=== PATIENT | female | born 1955 | race Caucasian/White ===

== ENCOUNTER 2018-06-20 12:15 | Emergency (ER) | payer BC ==
[~2018-06-20] VITALS: Ht 167.6 cm; Wt 65.9 kg
[~2018-06-20 12:15] MED LIST: ACTOS 45MG45 MG/TAB PO; ASPIR-LOW81 MG PO; FORTAMET1000 MG PO; GLUCOTROL10 MG PO; LEVAQUIN 5500 MG/TA1 PO; LISINOPRIL20 MG PO; OXYCODONE HCL5 MG PO; PREDNISONE20 MG PO; PROAIR HFA0.09 MG/AC IH; RIBAVIRIN PO; ZITHROMAX Z PA250 MG PO; pegasys
[2018-06-20 12:16] VITALS: BP 192/99; TEMP 97.9
[2018-06-20 13:53] VITALS: PULSE 89
== END 2018-06-20 13:54 | disposition home or self-care (01) ==
LOC: COL.ER 12:15
DX: R07.81 Pleurodynia (principal); M25.512 Pain in left shoulder; I10 Essential (primary) hypertension; E11.9 Type 2 diabetes mellitus without complications; F17.210 Nicotine dependence, cigarettes, uncomplicated; W19.XXXA Unspecified fall, initial encounter
CPT/HCPCS: J1885

== ENCOUNTER 2018-12-08 07:53 | Observation (INO) | payer BC ==
[~2018-12-08] VITALS: Ht 167.6 cm; Wt 63.3 kg
[2018-12-08 08:54] LABS: BASO # 0.1 (0.0-0.2); BASO % 0.6 % (0.0-2.0); EOS # 0.1 (0.0-0.7); EOS % 1.3 % (0-4.0); GRAN # 5.9 (1.4-6.5); GRAN % 71.9 % (42.2-75.2); HEMATOCRIT 42.6 % (37.0-47.0); HEMOGLOBIN 14.8 g/dl (12.5-16.0); LYMPH # 1.7 (1.2-3.4); MEAN CELL VOLUME 88 fl (80.0-100.0); MEAN CORPUSCULAR HEMOGLOBIN 30 pg (27.0-31.0); MEAN CORPUSCULAR HGB CONC 35 g/dl (33.0-37.0); MEAN PLATELET VOLUME 11.3 fl (7.4-10.4); MONO # 0.4 (0.1-0.6); MONO % 4.8 % (1.7-9.3); PLATELET COUNT 202 K/mm3 (130-400); RED BLOOD COUNT 4.87 M/mm3 (4.10-5.30); REDCELL DISTRIBUTION WIDTH-CV 11.6 % (11.5-14.5)
[2018-12-08 08:56] LABS: PROTHROMBIN TIME 11.6 SECONDS (9.7-12.8)
[2018-12-08 08:59] LABS: PARTIAL THROMBOPLASTIN TIME 27.8 SECONDS (26.0-37.0)
[2018-12-08 09:04] LABS: ALANINE AMINOTRANSFERASE 23 U/L (9-52); ALBUMIN 3.8 gm/dL (3.5-5.0); ALKALINE PHOSPHATASE 105 U/L (50-136); ANION GAP 9 mmol/L (7-16); AST,SGOT 23 U/L (15-37); BILIRUBIN,TOTAL 0.4 mg/dL (0.0-1.0); BLOOD UREA NITROGEN 17 mg/dL (7-17); CALCIUM 9.2 mg/dL (8.4-10.2); CARBON DIOXIDE 24 mmol/L (22-30); CHLORIDE 104 mmol/L (98-107); CREATININE, serum 0.59 mg/dL (0.52-1.25); GLUCOSE 381 mg/dL (74-106); SODIUM 137 mmol/L (137-145); TOTAL PROTEIN 6.8 gm/dL (6.4-8.2)
[2018-12-08 09:23] LABS: TROPONIN-I < 0.012 ng/mL (0.000-0.034)
[2018-12-08 09:44] LABS: COLLECTION METHOD CLEAN CATCH
[2018-12-08 10:08] LABS: MUCOUS Present /lpf; PH 5 (5-8); URINE APPEARANCE Clear; URINE BACTERIA None Seen /hpf; URINE BILIRUBIN Negative (NEGATIVE); URINE BLOOD Negative (NEGATIVE); URINE COLOR Yellow; URINE GLUCOSE 3+ (NEGATIVE); URINE KETONE Negative (NEGATIVE); URINE LEUKOCYTE ESTERASE Negative (NEGATIVE); URINE NITRATE Negative (NEGATIVE); URINE PROTEIN(semi-quant) Negative (NEGATIVE); URINE UROBILINOGEN Negative (NEGATIVE)
--- NOTE | 2018-12-08 14:12 | NUR ---
Pt arrived to room 319 at this time. She is A/O x3. Her breathing is even and unlabored on RA. Pt denies any pain at this time. Reports that she takes no home medications. POC discussed with patient who verbalizes understanding. She denies any further needs. Call light within reach.
[2018-12-08 15:27] VITALS: BP 165/83; PULSE 73; TEMP 99
[2018-12-08 16:30] LABS: TRICYCLIC ANTIDEPRESS URINE NEGATIVE
--- NOTE | 2018-12-08 18:44 | NUR ---
Pt rested well after arriving to the floor. BS high, insulin dosed per MAR. Discussed with patient the use of insulin and blood sugar checks. Pt reportedly asked day shift nurse "what would happen if I leave before they let me?". Importance of remaining in the hospital discussed with patient. Verbalized understanding. Call light within reach.
[2018-12-08 19:16] VITALS: BP 173/84; PULSE 88; TEMP 98.1
--- NOTE | 2018-12-08 19:44 | NUR ---
Resting in bed. Assessment complete. Alert and orientated. Lungs clear. Heart sounds normal. Pulses strong throughout. Denies pain. Denies needs at this time. Call light in reach.
[2018-12-08 19:48] VITALS: BP 151/73
--- NOTE | 2018-12-08 23:40 | NUR ---
Resting in bed asleep. Call light in reach.
[2018-12-09 01:28] VITALS: BP 161/85; PULSE 88; TEMP 98.7
--- NOTE | 2018-12-09 02:56 | NUR ---
Resting in bed asleep. Call light in reach.
[2018-12-09 05:16] VITALS: BP 169/73; PULSE 73
--- NOTE | 2018-12-09 06:37 | NUR ---
Uneventful night. Resting in bed this AM. Call light in reach.
[2018-12-09 06:40] LABS: BASO # 0.1 (0.0-0.2); BASO % 0.7 % (0.0-2.0); EOS # 0.2 (0.0-0.7); EOS % 2.9 % (0-4.0); GRAN # 4.3 (1.4-6.5); GRAN % 55.8 % (42.2-75.2); HEMATOCRIT 39.9 % (37.0-47.0); HEMOGLOBIN 13.7 g/dl (12.5-16.0); LYMPH # 2.7 (1.2-3.4); LYMPH % 34.7 % (20.0-51.0); MEAN CELL VOLUME 90 fl (80.0-100.0); MEAN CORPUSCULAR HEMOGLOBIN 31 pg (27.0-31.0); MEAN CORPUSCULAR HGB CONC 34 g/dl (33.0-37.0); MEAN PLATELET VOLUME 10.5 fl (7.4-10.4); MONO # 0.4 (0.1-0.6); MONO % 5.6 % (1.7-9.3); PLATELET COUNT 226 K/mm3 (130-400); RED BLOOD COUNT 4.46 M/mm3 (4.10-5.30); REDCELL DISTRIBUTION WIDTH-CV 11.9 % (11.5-14.5)
[2018-12-09 06:53] LABS: CALCIUM 8.7 mg/dL (8.4-10.2); CHOLESTEROL RISK RATIO 3.1; CREATININE, serum 0.66 mg/dL (0.52-1.25); POTASSIUM 3.9 mmol/L (3.4-5.0)
[2018-12-09 07:32] VITALS: BP 156/101; PULSE 81; TEMP 98.2
--- NOTE | 2018-12-09 07:32 | NUR ---
Resting in the bed quitely. No pain or needs reported. The call light is in place.
[2018-12-09] MEDS ORDERED: ZESTRIL 20MG TA20 MG PO (09:42)
[2018-12-09] MEDS ORDERED: GLUCOSE TEST ST1 DEV MC (09:56)
[2018-12-09] MEDS ORDERED: FREESTYLE PREC1 EAC5 MC (09:59)
[2018-12-09] MEDS ORDERED: LEVEMIR FLEX100 U/ML SQ (10:01)
[2018-12-09] MEDS ORDERED: THE MEDICINE SH1 DE3 MC (10:02)
[2018-12-09] MEDS ORDERED: LANCETS MC (10:02)
[2018-12-09] MEDS ORDERED: GLUCOPHAGE500 MG/TAB PO (10:03)
--- NOTE | 2018-12-09 10:47 | NUR ---
SW and SW student attended clinical rounding and met with patient to discuss discharge planning. Patient lives in [facility] alone and independently. Patients PCP is Dr Mary Ellen Laguna and she obtains her medications from [facility] in [facility]. Patient is going to dc home today and doesnt have any concerns.
--- NOTE | 2018-12-09 10:58 | NUR ---
The patient demonstarted taking her own blood sugar and following giving her own insulin. Plan to discharge home today.
--- NOTE | 2018-12-09 11:02 | NUR ---
Discharge education completed with the patient. All questions answered.
--- NOTE | 2018-12-09 11:21 | NUR ---
Escorted out by staff to her private vehicle. All prescriptions were sent to the patient's pharmacy.
== END 2018-12-09 11:28 | disposition home or self-care (01) ==
LOC: COL.ER 07:53 → MEDICAL 09:54
PROVIDERS: Emergency Medicine; Physician Assistant; ADMIT Hospitalist
DX: R42 Dizziness and giddiness (principal); I16.0 Hypertensive urgency; I10 Essential (primary) hypertension; E11.65 Type 2 diabetes mellitus with hyperglycemia; F17.210 Nicotine dependence, cigarettes, uncomplicated; Z85.41 Personal history of malignant neoplasm of cervix uteri; Z82.5 Family history of asthma and other chronic lower respiratory diseases; Z80.9 Family history of malignant neoplasm, unspecified; Z88.5 Allergy status to narcotic agent
CPT/HCPCS: A9585; G0378; J1650; J1815; J7030; J7040